=== PATIENT | male | born 1960 | race African-American/Black ===

== ENCOUNTER 2017-05-12 12:14 | Emergency (ER) | payer OTHER, SELFPAY ==
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
[2017-05-12] MEDS ORDERED: Ketorolac Tromethamine 60 MG/2 ML VIAL ONE (15:55)
== END 2017-05-12 16:16 | disposition home or self-care (01) ==
LOC: ERS 12:14
DX: S33.5XXA Sprain of ligaments of lumbar spine, initial encounter (principal); S13.4XXA Sprain of ligaments of cervical spine, initial encounter; I10 Essential (primary) hypertension; V43.52XA Car driver injured in collision with other type car in traffic accident, initial encounter
CPT/HCPCS: 72040; 72100; 96372; J1885

== ENCOUNTER 2017-05-17 14:58 | Emergency (ER) | payer SELFPAY ==
[2017-05-17 15:48] LABS: #Eosinphils 0.2 thou/uL (0.0-0.7); #Lymphocytes 0.9 thou/uL (1.20-3.40); #Monocytes 0.7 thou/uL (0.11-0.59); #Neutrophils 3.3 thou/uL (1.40-6.50); %Basophils 0.6 % (0.0-1.0); %Eosinophils 3.9 % (0.0-10.0); %Monocytes 14.7 % (0.0-10.0); Hemoglobin 14.9 g/dL (14.0-18.0); Mean Corpuscular Hemoglobin 33.3 pg (27.0-31.0); Mean Corpuscular Volume 97.9 fl (80.0-94.0); Mean Platelet Volume 8.1 fL (7.4-10.4); Platelet Count 224 thou/uL (130-400); RBC Distribution Width 12.9 % (11.5-14.5); Red Blood Cell (RBC) Count 4.48 mill/uL (4.70-6.10); White Blood Cell (WBC) Count 5.1 thou/uL (4.8-10.8)
[2017-05-17 16:08] LABS: ALT (SGPT) 9 U/L (8-55); AST (SGOT) 17 U/L (5-34); Albumin 3.6 g/dL (3.5-5.0); Alkaline Phosphatase 111 U/L (40-150); Anion Gap 10 mmol/L (10-20); BUN (Urea Nitrogen) 10 mg/dL (8.4-25.7); Bilirubin, Total 0.2 mg/dL (0.2-1.2); Calc. Creatinine Clearance 0 mL/min (70-130); Calcium 8.7 mg/dL (7.8-10.44); Carbon Dioxide 28 mmol/L (22-29); Chloride 104 mmol/L (98-107); Estimated GFR-MDRD 81; Globulin 3.4 g/dL (2.4-3.5); Glucose 84 mg/dL (70-105); Potassium 3.7 mmol/L (3.5-5.1); Sodium 138 mmol/L (136-145)
[2017-05-17 16:12] LABS: CKMB 0.7 ng/mL (0-6.6); Troponin I Less than 0.010 ng/mL (< 0.028)
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
[2017-05-17] MEDS ORDERED: cloNIDine 0.1 MG TAB ONE (16:34)
[2017-05-17] MEDS ORDERED: Ketorolac Tromethamine 60 MG/2 ML VIAL ONE (16:59)
[2017-05-17] MEDS ORDERED: Methocarbamol 500 MG TAB PO SCH (17:15)
== END 2017-05-17 18:00 | disposition home or self-care (01) ==
LOC: ERS 14:58
DX: G89.29 Other chronic pain (principal); M54.2 Cervicalgia; R06.00 Dyspnea, unspecified; F32.9 Major depressive disorder, single episode, unspecified; I10 Essential (primary) hypertension
CPT/HCPCS: 36415; 71045; 80053; 82553; 84484; 85025; 87804; 93005; 94640; 96372; J1885

== ENCOUNTER 2017-06-20 05:26 | Emergency (ER) | payer OTHER, SELFPAY ==
[2017-06-20] MEDS ORDERED: Dexamethasone 10 MG/ML VIAL ONE (05:52)
== END 2017-06-20 06:17 | disposition home or self-care (01) ==
LOC: ERS 05:26
DX: K12.2 Cellulitis and abscess of mouth (principal); I10 Essential (primary) hypertension; F32.9 Major depressive disorder, single episode, unspecified
CPT/HCPCS: 96372; J1100

== ENCOUNTER 2017-06-26 13:34 | Emergency (ER) | payer SELFPAY ==
[2017-06-26] MEDS ORDERED: Ketorolac Tromethamine 30 MG/ML VIAL ONE (14:04)
== END 2017-06-26 15:11 | disposition home or self-care (01) ==
LOC: ERS 13:34
DX: M54.5 Low back pain (principal); G89.29 Other chronic pain; I10 Essential (primary) hypertension; F32.9 Major depressive disorder, single episode, unspecified
CPT/HCPCS: 96372; J1885

== ENCOUNTER 2017-07-15 10:08 | Emergency (ER) | payer SELFPAY, OTHER | END 2017-07-15 12:49 | disposition home or self-care (01) | LOC: ERS 10:08 | DX: M54.42 Lumbago with sciatica, left side (principal); I10 Essential (primary) hypertension; F32.9 Major depressive disorder, single episode, unspecified; Z79.899 Other long term (current) drug therapy | CPT/HCPCS: 99283 ==